=== PATIENT | male | born 1995 | race Caucasian/White ===

== ENCOUNTER 2024-05-12 20:48 | Emergency (ER) | payer MEDICAID ==
[~2024-05-12] VITALS: Ht 200.7 cm; Wt 88.5 kg
[2024-05-12 21:27] VITALS: BP 148/81; TEMP 98; O2SAT 98
== END 2024-05-12 21:41 | disposition home or self-care (01) ==
LOC: ER 21:01
DX: T23.021A Burn of unspecified degree of single right finger (nail) except thumb, initial encounter (principal); T30.0 Burn of unspecified body region, unspecified degree; X15.3XXA Contact with hot saucepan or skillet, initial encounter; Y93.89 Activity, other specified; Y92.89 Other specified places as the place of occurrence of the external cause; Y99.8 Other external cause status